=== PATIENT | female | born 2000 | race Hispanic/Latino ===

== ENCOUNTER 2020-07-11 08:42 | Emergency (ER) | payer OTHER, MEDICAID ==
[~2020-07-11] VITALS: Ht 152.4 cm; Wt 59.0 kg
[2020-07-11] MEDS ORDERED: HYDROCODON-ACE1 EA10 PO (10:14)
[2020-07-11] MEDS ORDERED: ONDANSETRON ODT8 MG PO (11:32)
== END 2020-07-11 11:47 | disposition home or self-care (01) ==
LOC: ED 08:42
DX: S22.040A Wedge compression fracture of fourth thoracic vertebra, initial encounter for closed fracture (principal); S01.311A Laceration without foreign body of right ear, initial encounter; V48.5XXA Car driver injured in noncollision transport accident in traffic accident, initial encounter
CPT/HCPCS: 12013; 72070; 99284-25; J1885